=== PATIENT | male | born 1965 | race Caucasian/White ===

== ENCOUNTER → 2016-08-20 | Outpatient (REF) | payer BC ==
[2016-08-20 18:29] LABS: REASON FOR REVIEW COMPREHENSIVE REVIEW
== END ==
LOC: M LAB REF 16:38
PROVIDERS: ATTEND Internal Medicine Medical Oncology
DX: C95.90 Leukemia, unspecified not having achieved remission (principal)

== ENCOUNTER → 2016-09-18 | Outpatient (CLI) | payer BC | LOC: M LRY 17:28 | PROVIDERS: ATTEND Nurse Practitioner Family | DX: E89.0 Postprocedural hypothyroidism (principal); E06.3 Autoimmune thyroiditis; E04.2 Nontoxic multinodular goiter ==

== ENCOUNTER → 2016-11-12 | Outpatient (REF) | payer BC ==
[2016-11-12 18:59] LABS: REASON FOR REVIEW COMPREHENSIVE REVIEW
== END ==
LOC: M LAB REF 16:49
PROVIDERS: ATTEND Internal Medicine Medical Oncology
DX: C91.40 Hairy cell leukemia not having achieved remission (principal)

== ENCOUNTER → 2016-11-20 | Outpatient (REF) | payer BC ==
[2016-11-20 19:52] LABS: IMMUNOGLOBULIN G 1160 MG/DL (681-1648); IMMUNOGLOBULIN M 33.4 MG/DL (40-230); TOTAL PROTEIN 7.5 GM/DL (6.4-8.2)
[2016-11-21 12:31] LABS: ALBUMIN 4.58 GM/DL (3.29-5.55); GAMMA GLOBULIN % 14.2 % (11.1-18.8)
[2016-11-22 14:37] LABS: BETA 2 MICROGLOBULIN 1.6 mg/L (0.6-2.4)
[2016-11-23 00:07] LABS: FREE KAPPA LIGHT CHAINS SERUM 15.52 mg/L (3.30-19.40); FREE LAMBDA LIGHT CHAINS SERUM 8.7 mg/L (5.71-26.30); KAPPA/LAMBDA RATIO SERUM 1.78 (0.26-1.65)
== END ==
LOC: M LAB REF 17:11
PROVIDERS: ATTEND Internal Medicine Medical Oncology
DX: C91.40 Hairy cell leukemia not having achieved remission (principal)

== ENCOUNTER → 2016-11-27 | Outpatient (CLI) | payer BC ==
--- NOTE | 2016-11-28 09:28 | REP ---
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 Suspicion of lymphoma raised. Staging PET-CT. COMPARISON: Comparison is made with chest, abdomen and pelvis CT study from April 29, 2016 and thyroid ultrasound from March 08, 2016. TECHNIQUE: 49 minutes following the intravenous injection of a 11.5 mCi dose of F-18 FDG, three-dimensional PET scintigraphy is acquired from the skull base to the proximal thighs. Triplanar noncontrast CT scanning is acquired through the same anatomic range for attenuation correction, and image registration with scan parameters optimized to minimize radiation exposure to the patient. PET scintigraphy and CT datasets were fused and displayed on a workstation with multiplanar and projection display capability. PET/CT FINDINGS: There is a focus of borderline hypermetabolic uptake in the right thyroid bed region laterally adjacent to the right side of the cricoid cartilage. Maximum standard uptake value here is 3.3. There is a barely perceptible 4-5 mm nodular density here on accompanying CT. This may be residual postoperative inflammation. There is no other notable FDG accumulation or obvious hyper metabolic uptake. No abnormal cece uptake is seen in the chest or mediastinum. No abnormal hypermetabolic uptake is seen in the abdomen or pelvis. IMPRESSION: Equivocal focus of mildly hypermetabolic uptake in the right thyroidectomy bed. Residual postoperative change versus cece hypermetabolic focus. Otherwise negative PET scintigraphy. Signed by Eliezer Neri MD 11/28/2016 12:38 P
== END ==
LOC: M RAD 14:24
PROVIDERS: ATTEND Internal Medicine Medical Oncology
DX: E89.0 Postprocedural hypothyroidism (principal)
CPT/HCPCS: 78815; A9552

== ENCOUNTER → 2017-03-17 | Outpatient (CLI) | payer BC ==
--- NOTE | 2017-03-17 15:57 | REP ---
Ultrasound of the neck: The patient reportedly underwent bilateral thyroidectomy in August of 2016 and now has a palpable nodule in the neck on the right approximately 4 mm in diameter. By ultrasound, no residual thyroid tissue is identified on the right or the left. No soft tissue nodules or masses are identified on the right. On the left, several lymph nodes are identified, the largest measuring 11.7 x 4.7 x 7.3 cm. Impression: No neck masses or nodules are identified on the right by ultrasound. There are several lymph nodes on the left as described. Signed by En Maravilla MD 03/17/2017 03:48 P
== END ==
LOC: M RAD 13:55
PROVIDERS: ATTEND Internal Medicine Medical Oncology
DX: E04.1 Nontoxic single thyroid nodule (principal)

== ENCOUNTER → 2017-03-21 | Outpatient (REF) | payer BC ==
[2017-03-21 14:37] LABS: IMMUNOGLOBULIN G 1120 MG/DL (681-1648); IMMUNOGLOBULIN M 36.4 MG/DL (40-230); TOTAL PROTEIN 7.7 GM/DL (6.4-8.2)
[2017-03-24 14:56] LABS: ALBUMIN 4.67 GM/DL (3.29-5.55); ALBUMIN % 60.6 % (55.8-66.1); GAMMA GLOBULIN % 14.3 % (11.1-18.8)
[2017-03-26 00:07] LABS: FREE KAPPA LIGHT CHAINS SERUM 13.4 mg/L (3.3-19.4); FREE LAMBDA LIGHT CHAINS SERUM 9.5 mg/L (5.7-26.3); KAPPA/LAMBDA RATIO SERUM 1.41 (0.26-1.65)
== END ==
LOC: M LAB REF 13:55
PROVIDERS: ATTEND Internal Medicine Medical Oncology
DX: C91.40 Hairy cell leukemia not having achieved remission (principal)

== ENCOUNTER → 2017-03-28 | Outpatient (CLI) | payer BC ==
[~2017-03-28] MED LIST: ISOVUE-370 76% 100ML VIAL (Q9967) As Ordered ONE
--- NOTE | 2017-03-28 19:37 | REP ---
Soft-tissue neck CT study with IV contrast: History: Abnormal ultrasound. Sonography 03/17/2017 showed left-sided neck lymph nodes. The PET-CT from 2016 showed an equivocal focus of uptake in the thyroidectomy bed on the right. CT contrast dose: 75 mL of Isovue [address] findings: The patient is status post thyroidectomy. No residual thyroid tissue is seen on the left. On the right at the thyroid bed there is a 7 17 x 7 mm oval shaped nodule. This is in the area where the PET-CT showed avidity. This could be a small lymph node, or residual thyroid or parathyroid tissue. It is not visible sonographically. Today's neck CT study shows no evidence of cervical lymphadenopathy. Normal size normal-appearing lymph nodes are noted bilaterally. The parotid and submandibular glands are unremarkable and symmetric. No vascular abnormality is seen. There are degenerative disc changes at C5-6 and C6-7 in the cervical spine. No bony destructive lesion is seen. Impression: No evidence of neck adenopathy is seen. There is a 7 x 17 x 7 mm oval shaped nodular density in the right thyroid bed. Signed by Eliezer Neri MD 03/28/2017 07:42 P
== END ==
LOC: M RAD 17:19
PROVIDERS: ATTEND Internal Medicine Medical Oncology
DX: C91.40 Hairy cell leukemia not having achieved remission (principal)
CPT/HCPCS: 70491; Q9967

== ENCOUNTER → 2017-09-23 | Outpatient (REF) | payer BC | LOC: M LAB REF 17:44 | DX: C91.40 Hairy cell leukemia not having achieved remission (principal) | CPT/HCPCS: 88300 ==

== ENCOUNTER → 2017-11-06 | Outpatient (CLI) | payer BC | LOC: M RAD 14:18 | DX: J32.0 Chronic maxillary sinusitis (principal) | CPT/HCPCS: 70486 ==

== ENCOUNTER 2017-11-13 06:57 | Day surgery (SDC) | payer BC ==
[2017-11-13] MEDS ORDERED: NS 1,000 ML IV (07:30)
[2017-11-13] MEDS ORDERED: PROPOFOL 200 MG/20 ML VIAL As Ordered ×2 (07:47→08:11)
== END 2017-11-13 09:14 | disposition home or self-care (01) ==
LOC: M OPP 06:57
DX: Z12.11 Encounter for screening for malignant neoplasm of colon (principal); D12.2 Benign neoplasm of ascending colon; K64.8 Other hemorrhoids; Z85.6 Personal history of leukemia; Z92.21 Personal history of antineoplastic chemotherapy; E03.9 Hypothyroidism, unspecified; M19.90 Unspecified osteoarthritis, unspecified site; R06.83 Snoring; G47.30 Sleep apnea, unspecified; Z79.899 Other long term (current) drug therapy
CPT/HCPCS: 45385

== ENCOUNTER → 2017-12-09 | Outpatient (CLI) | payer BC ==
[2017-12-09 21:41] LABS: THYROID STIMULATING HORMONE 0.173 uIU/ML (0.358-3.740)
[2017-12-09 21:41] LABS: FREE T4 1.12 NG/DL (0.76-1.46)
== END ==
LOC: M LRY 16:53
DX: E89.0 Postprocedural hypothyroidism (principal)
CPT/HCPCS: 84443

== ENCOUNTER → 2018-01-26 | Outpatient (CLI) | payer BC ==
[2018-01-26 21:19] LABS: FREE T4 1.04 NG/DL (0.76-1.46)
== END ==
LOC: M LRY 16:05
DX: E89.0 Postprocedural hypothyroidism (principal)
CPT/HCPCS: 84443

== ENCOUNTER → 2018-02-02 | Outpatient (CLI) | payer BC | LOC: M RAD 13:59 | DX: C90.21 Extramedullary plasmacytoma in remission (principal) | CPT/HCPCS: 76536 ==

== ENCOUNTER → 2019-01-01 | Outpatient (CLI) | payer BC ==
[~2019-01-01] MED LIST changes: -ISOVUE-370 76% 100ML VIAL (Q9967) As Ordered ONE; +LEVO125T4 PO; +METO5TA PO; +POTA1TAB23 PO; +SYNT137T7 PO
[2019-01-01 17:23] LABS: FREE T4 0.96 NG/DL (0.76-1.46); THYROID STIMULATING HORMONE 6.74 uIU/ML (0.358-3.740)
== END ==
LOC: M LRY 10:17
PROVIDERS: ATTEND Internal Medicine Endocrinology, Diabetes & Metabolism
DX: E89.0 Postprocedural hypothyroidism (principal)

== ENCOUNTER → 2019-01-05 | Outpatient (CLI) | payer BC ==
--- NOTE | 2019-01-05 13:51 | REP ---
RIGHT HAND, FOUR VIEWS: HISTORY: Hand pain. There is no acute fracture or dislocation. The joint spaces are normal in appearance. IMPRESSION: There is no acute fracture or dislocation. Electronically Signed by Larry Hopkins MD 01/05/2019 01:59 P
== END ==
LOC: MERGE 11:06 → M LRY 11:06
PROVIDERS: ATTEND Family Medicine
DX: M79.641 Pain in right hand (principal)

== ENCOUNTER → 2019-03-20 | Outpatient (CLI) | payer BC | LOC: M LRY 09:56 | PROVIDERS: ATTEND Internal Medicine Endocrinology, Diabetes & Metabolism | DX: E89.0 Postprocedural hypothyroidism (principal) ==

== ENCOUNTER → 2019-09-08 | Outpatient (CLI) | payer BC | LOC: M LRY 16:26 | PROVIDERS: ATTEND Internal Medicine Endocrinology, Diabetes & Metabolism | DX: E89.0 Postprocedural hypothyroidism (principal) ==

== ENCOUNTER → 2020-12-01 | Outpatient (CLI) | payer BC | LOC: M WUC 10:29 | PROVIDERS: ATTEND Internal Medicine Endocrinology, Diabetes & Metabolism | DX: E89.0 Postprocedural hypothyroidism (principal) ==

== ENCOUNTER → 2020-12-01 | Outpatient (CLI) | payer BC ==
[2020-12-01 16:30] LABS: CHOLESTEROL RISK RATIO 5.162 (<5)
== END ==
LOC: M WUC 10:27
PROVIDERS: ATTEND Family Medicine
DX: Z00.00 Encounter for general adult medical examination without abnormal findings (principal)

== ENCOUNTER → 2021-01-14 | Outpatient (CLI) | payer BC ==
[~2021-01-14] MED LIST changes: +EUTH137T PO
== END ==
LOC: M LABSMTC 09:15
PROVIDERS: ATTEND Anesthesiology
DX: Z20.828 Contact with and (suspected) exposure to other viral communicable diseases (principal); Z11.59 Encounter for screening for other viral diseases

== ENCOUNTER 2021-01-19 12:05 | Day surgery (SDC) | payer BC ==
[~2021-01-19] VITALS: Ht 182.9 cm; Wt 113.4 kg
[~2021-01-19 12:05] MED LIST changes: +NS 1,000 ML IV ONE
[2021-01-19] MEDS ORDERED: METO5TA PO (13:44)
--- NOTE | 2021-01-19 15:26 | ROOR ---
Patient Name: Rosie Gomes Procedure Date: 01/19/2021 3:07 PM Date of : 1965 Age: 55 Room: [facility] Gender: Male Note Status: Finalized Procedure: Colonoscopy Indications: High risk colon cancer surveillance: Personal history of colonic polyps Providers: Agus Yee MD Referring MD: Mili Valdivia Md Requesting Provider: Medicines: Monitored Anesthesia Care Complications: No immediate complications. Procedure: Pre-Anesthesia Assessment: - The heart rate, respiratory rate, oxygen saturations, blood pressure, adequacy of pulmonary ventilation, and response to care were monitored throughout the procedure. The Colonoscope was introduced through the anus and advanced to the terminal ileum, with identification of the appendiceal orifice and IC valve. The colonoscopy was performed without difficulty. The patient tolerated the procedure well. The quality of the bowel preparation was good. Findings: The perianal and digital rectal examinations were normal. A diminutive polyp was found in the sigmoid colon. The polyp was sessile. The polyp was removed with a cold snare. Resection and retrieval were complete. Small Internal Hemorrhoids. The exam was otherwise without abnormality on direct and retroflexion views. Impression: - One diminutive polyp in the sigmoid colon, removed with a cold snare. Resected and retrieved. - Small Internal Hemorrhoids. - The examination was otherwise normal on direct and retroflexion views. Recommendation: - Repeat colonoscopy in 5 years for surveillance. Procedure Code(s): --- Professional --- 24525, Colonoscopy, flexible; with removal of tumor(s), polyp(s), or other lesion(s) by snare technique Diagnosis Code(s): --- Professional --- K63.5, Polyp of colon Z86.010, Personal history of colonic polyps CPT copyright 2019 [employer]. All rights reserved. The codes documented in this report are preliminary and upon facility maintenance supervisor review may be revised to meet current compliance requirements. Agus Yee MD Agus Yee MD 01/19/2021 3:25:23 PM Electronically signed by Agus Yee MD Number of Addenda: 0 Note Initiated On: 01/19/2021 3:07 PM Estimated Blood Loss: Estimated blood loss: none.
[2021-01-19] MEDS ORDERED: propofoL 200 MG/20 ML VIAL As Ordered ONE (15:36)
[2021-01-19 15:45] VITALS: BP 117/64
== END 2021-01-19 15:51 | disposition home or self-care (01) ==
LOC: M OPP 12:05
PROVIDERS: ATTEND Internal Medicine Gastroenterology
DX: Z12.11 Encounter for screening for malignant neoplasm of colon (principal); Z86.010 Personal history of colon polyps; K63.5 Polyp of colon; K64.8 Other hemorrhoids; Z79.899 Other long term (current) drug therapy; Z87.891 Personal history of nicotine dependence

== ENCOUNTER → 2021-02-08 | Outpatient (CLI) | payer BC ==
[~2021-02-08] MED LIST changes: -NS 1,000 ML IV ONE
[2021-02-08 17:08] LABS: FREE T4 0.96 NG/DL (0.76-1.46); THYROID STIMULATING HORMONE 0.949 uIU/ML (0.358-3.740)
== END ==
LOC: M WUC 12:33
PROVIDERS: ATTEND Nurse Practitioner Family
DX: E89.0 Postprocedural hypothyroidism (principal)

== ENCOUNTER → 2021-06-11 | Outpatient (CLI) | payer BC ==
[2021-06-11 18:15] LABS: THYROID STIMULATING HORMONE 0.903 uIU/ML (0.358-3.740)
== END ==
LOC: M WUC 15:04
PROVIDERS: ATTEND Nurse Practitioner Family
DX: E89.0 Postprocedural hypothyroidism (principal)

== ENCOUNTER → 2021-12-11 | Outpatient (CLI) | payer BC ==
[2021-12-11 13:35] LABS: FREE T4 0.98 NG/DL (0.76-1.46); THYROID STIMULATING HORMONE 1.63 uIU/ML (0.358-3.740)
== END ==
LOC: M WUC 10:05
PROVIDERS: ATTEND Nurse Practitioner Family
DX: E89.0 Postprocedural hypothyroidism (principal)

== ENCOUNTER → 2021-12-20 | Outpatient (CLI) | payer BC ==
[2021-12-20 19:43] LABS: INR 0.91; PROTHROMBIN TIME 12.7 SECONDS (12.7-14.5)
[2021-12-20 19:44] LABS: PARTIAL THROMBOPLASTIN TIME 31.1 SECONDS (25.9-37.0)
== END ==
LOC: M WUC 15:12
PROVIDERS: ATTEND Student in an Organized Health Care Education/Training Program
DX: R04.0 Epistaxis (principal); R63.5 Abnormal weight gain

== ENCOUNTER → 2022-03-20 | Outpatient (CLI) | payer BC ==
[2022-03-20 12:30] LABS: PROSTATIC SPECIFIC AG MONITOR 5.5 NG/ML (< 4.00)
== END ==
LOC: M WUC 08:04
PROVIDERS: ATTEND Internal Medicine Endocrinology, Diabetes & Metabolism
DX: E29.1 Testicular hypofunction (principal)

== ENCOUNTER → 2022-07-22 | Outpatient (CLI) | payer BC | LOC: M WUC 15:30 | PROVIDERS: ATTEND Internal Medicine Endocrinology, Diabetes & Metabolism | DX: E29.1 Testicular hypofunction (principal) ==

== ENCOUNTER → 2022-09-17 | Outpatient (CLI) | payer BC | LOC: M WUC 15:08 | PROVIDERS: ATTEND Nurse Practitioner Family | DX: E29.1 Testicular hypofunction (principal) ==

== ENCOUNTER → 2022-12-13 | Outpatient (CLI) | payer BC | LOC: M WUC 14:39 | PROVIDERS: ATTEND Physician Assistant | DX: R97.20 Elevated prostate specific antigen [PSA] (principal) ==

== ENCOUNTER → 2023-01-13 | Outpatient (CLI) | payer BC ==
[2023-01-13 18:46] LABS: THYROID STIMULATING HORMONE 3.324 uIU/ML (0.55-4.78)
[2023-01-13 18:49] LABS: FREE T4 1.26 NG/DL (0.89-1.76)
== END ==
LOC: M WUC 14:50
PROVIDERS: ATTEND Nurse Practitioner Family
DX: E89.0 Postprocedural hypothyroidism (principal)

== ENCOUNTER → 2023-03-25 | Outpatient (REF) | payer BC ==
[2023-03-25 21:29] LABS: FREE T4 1.15 NG/DL (0.89-1.76); THYROID STIMULATING HORMONE 3.557 uIU/ML (0.55-4.78)
== END ==
LOC: M LAB REF 20:04
PROVIDERS: ATTEND Nurse Practitioner Family
DX: E89.0 Postprocedural hypothyroidism (principal)

== ENCOUNTER → 2023-06-18 | Outpatient (REF) | payer BC | LOC: M LAB REF 20:57 | PROVIDERS: ATTEND Physician Assistant | DX: R97.20 Elevated prostate specific antigen [PSA] (principal) ==

== ENCOUNTER → 2023-08-01 | Outpatient (REF) | payer BC | LOC: M SMT PRO 10:02 | PROVIDERS: ATTEND Urology | DX: R97.20 Elevated prostate specific antigen [PSA] (principal) ==

== ENCOUNTER → 2023-10-06 | Outpatient (REF) | payer BC ==
[2023-10-06 20:50] LABS: FREE T4 1.11 NG/DL (0.89-1.76); THYROID STIMULATING HORMONE 2.3 uIU/ML (0.55-4.78)
== END ==
LOC: M LAB REF 20:21
PROVIDERS: ATTEND Nurse Practitioner Family
DX: E89.0 Postprocedural hypothyroidism (principal)

== ENCOUNTER → 2023-10-28 | Outpatient (CLI) | payer BC | LOC: M RAD 08:32 | PROVIDERS: ATTEND Nurse Practitioner | DX: C91.40 Hairy cell leukemia not having achieved remission (principal) ==

== ENCOUNTER → 2023-12-09 | Outpatient (REF) | payer BC | LOC: M LAB REF 19:03 | PROVIDERS: ATTEND Urology | DX: R97.20 Elevated prostate specific antigen [PSA] (principal) ==

== ENCOUNTER → 2024-09-08 | Outpatient (REF) | payer BC | LOC: M LAB REF 19:12 | PROVIDERS: ATTEND Physician Assistant | DX: R97.20 Elevated prostate specific antigen [PSA] (principal) ==

== ENCOUNTER → 2024-09-21 | Outpatient (REF) | payer BC ==
[2024-09-21 18:33] LABS: THYROID STIMULATING HORMONE 1.319 uIU/ML (0.55-4.78)
[2024-09-21 18:35] LABS: FREE T4 1.53 NG/DL (0.89-1.76)
== END ==
LOC: M LABWUC 16:27 → M LAB REF 16:27
PROVIDERS: ATTEND Nurse Practitioner Family
DX: E89.0 Postprocedural hypothyroidism (principal)

== ENCOUNTER → 2025-03-15 | Outpatient (REF) | payer BC | LOC: M LABWUC 17:24 → M SMT 17:24 | PROVIDERS: ATTEND Physician Assistant | DX: R97.20 Elevated prostate specific antigen [PSA] (principal) ==

== ENCOUNTER → 2025-03-15 | Outpatient (REF) | payer BC ==
[2025-03-15 19:14] LABS: FREE T4 1.45 NG/DL (0.89-1.76)
== END ==
LOC: M LABWUC 17:25
PROVIDERS: ATTEND Nurse Practitioner Family
DX: E89.0 Postprocedural hypothyroidism (principal)

== ENCOUNTER → 2025-04-25 | Outpatient (CLI) | payer BC | LOC: M WUC 14:42 | PROVIDERS: ATTEND Physician Assistant | DX: R97.20 Elevated prostate specific antigen [PSA] (principal) ==

== ENCOUNTER → 2025-05-12 | Outpatient (CLI) | payer BC ==
[2025-05-12 12:43] LABS: CALCIUM LEVEL 9.0 MG/DL (8.3-10.6); CARBON DIOXIDE LEVEL 30 MMOL/L (20-31); CHLORIDE LEVEL 101 MMOL/L (98-107); CREATININE FOR GFR 0.91 MG/DL (0.70-1.30); GLOMERULAR FILTRATION RATE > 90.0 (>49); POTASSIUM SERUM 3.7 MMOL/L (3.5-5.1); SODIUM LEVEL 135 MMOL/L (136-145)
[2025-05-12 12:44] LABS: ESTRADIOL 45.2 PG/ML (<39.8); LUTEINIZING HORMONE 3.4 mIU/ML (1.5-9.3); TESTOSTERONE 392 NG/DL (241-827)
== END ==
LOC: M WUC 09:10
PROVIDERS: ATTEND Physician Assistant
DX: N52.9 Male erectile dysfunction, unspecified (principal); R97.20 Elevated prostate specific antigen [PSA]

== ENCOUNTER → 2025-05-27 | Outpatient (CLI) | payer BC ==
[~2025-05-27] MED LIST changes: +PROHANCE 279.3MG/ML 15ML VIAL As Ordered ONE; +PROHANCE 279.3MG/ML 5ML VIAL As Ordered ONE
== END ==
LOC: M RAD 06:25
PROVIDERS: ATTEND Physician Assistant
DX: R97.20 Elevated prostate specific antigen [PSA] (principal)
CPT/HCPCS: 72197; A9576